=== PATIENT | female | born 1990 | race Caucasian/White ===

== ENCOUNTER 2017-04-24 20:31 | Emergency (ER) | payer OTHER | END 2017-04-24 23:00 | disposition home or self-care (01) | LOC: ER1 20:31 | DX: R10.30 Lower abdominal pain, unspecified (principal); R30.0 Dysuria; R31.9 Hematuria, unspecified; R35.0 Frequency of micturition; E07.9 Disorder of thyroid, unspecified; Z88.0 Allergy status to penicillin; Z79.899 Other long term (current) drug therapy | CPT/HCPCS: 81001; 84703; 87086; 99284 ==

== ENCOUNTER 2020-08-11 18:13 | Emergency (ER) | payer OTHER ==
[~2020-08-11 18:13] MED LIST: EXPECTA PRENAT1 EACH PO; IBU800 MG PO; LODINE CAP 300300 MG PO; LORATADINE10 MG PO; OMNICEF 300 MG300 MG PO; PRENATAL TABLE1 EAC1 PO; SYNTHROID 125125 MCG GT; SYNTHROID100 MCG PO; TYLENOL 500 MG500 MG PO; VENTOLIN/PROVE0.5 ML INH; ZITHROMAX500 MG PO
[2020-08-11] MEDS ORDERED: VALACYCLOVIR1000 MG PO (19:59)
[2020-08-11] MEDS ORDERED: PREDNISONE20 MG PO (19:59)
[2020-08-11] MEDS ORDERED: ERYTHROMYCIN OP1 GM OP (20:00)
== END 2020-08-11 20:23 | disposition home or self-care (01) ==
LOC: ER1 18:13
DX: G51.0 Bell's palsy (principal); J30.2 Other seasonal allergic rhinitis; Z79.899 Other long term (current) drug therapy; Z88.0 Allergy status to penicillin
CPT/HCPCS: 99284

== ENCOUNTER 2020-09-28 13:39 | Emergency (ER) | payer OTHER ==
[~2020-09-28 13:39] MED LIST changes: +ERYTHROMYCIN OP1 GM OP; +PREDNISONE20 MG PO; +VALACYCLOVIR1000 MG PO
== END 2020-09-28 14:10 | disposition home or self-care (01) ==
LOC: ER1 13:39
DX: D17.23 Benign lipomatous neoplasm of skin and subcutaneous tissue of right leg (principal); E03.9 Hypothyroidism, unspecified; Z88.0 Allergy status to penicillin; Z79.899 Other long term (current) drug therapy
CPT/HCPCS: 99282

== ENCOUNTER → 2021-03-11 | Outpatient (CLI) | payer OTHER | LOC: LAB 11:39 | DX: O26.859 Spotting complicating pregnancy, unspecified trimester (principal) | CPT/HCPCS: 36415; 84702 ==

== ENCOUNTER 2021-03-25 14:16 | Emergency (ER) | payer OTHER ==
[2021-03-25 15:52] LABS: HEMOGLOBIN 11.9 gm/dl (12.3-15.3); RED BLOOD COUNT 4.41 M/UL (4.00-5.10); WHITE BLOOD COUNT 10.5 K/UL (4.5-11.0)
[2021-03-25 16:05] LABS: BUN/CREATININE RATIO 11 (0-10)
== END 2021-03-25 17:18 | disposition home or self-care (01) ==
LOC: ER1 14:16
PROVIDERS: Physician Assistant
DX: O20.0 Threatened abortion (principal); Z88.0 Allergy status to penicillin
CPT/HCPCS: 80053; 81001; 84702; 85025; 86900; 86901; 99284

== ENCOUNTER → 2021-12-29 | Outpatient (CLI) | payer OTHER ==
[~2021-12-29] MED LIST changes: +COLACE 100MG C100 MG PO; +HYDROCODON-ACE1 EAC4 PO; +IBUPROFEN800 MG PO
== END ==
LOC: EXRD 12:54
DX: E04.1 Nontoxic single thyroid nodule (principal)
CPT/HCPCS: 76536

== ENCOUNTER → 2022-01-24 | Outpatient (CLI) | payer OTHER | LOC: KOH-I 11:40 | DX: M79.641 Pain in right hand (principal) | CPT/HCPCS: 73130 ==